=== PATIENT | female | born 1950 | race Caucasian/White ===

== ENCOUNTER → 2016-08-08 | Outpatient (CLI) | payer MEDICARE ==
--- NOTE | 2016-08-10 08:01 | MM ---
Reason for exam: screening (asymptomatic). Last mammogram was performed 1 year ago. History: Patient is postmenopausal. Family history of breast cancer in paternal grandmother and breast cancer in sister. Physical Findings: A clinical breast exam by your physician is recommended on an annual basis and results should be correlated with mammographic findings. MG 3D Screening Mammo W/Cad Bilateral CC and MLO view(s) were taken. Prior study comparison: August 02, 2015, bilateral MG screening mammo w CAD. July 28, 2013, bilateral digital screening mammo w/CAD. There are scattered fibroglandular densities. No significant changes when compared with prior studies. ASSESSMENT: Negative, BI-RAD 1 RECOMMENDATION: Routine screening mammogram of both breasts in 1 year.
== END ==
LOC: RADMAMWWP 14:03
PROVIDERS: ATTEND Family Medicine
DX: Z12.31 Encounter for screening mammogram for malignant neoplasm of breast (principal)
CPT/HCPCS: 77063; G0202

== ENCOUNTER → 2018-01-17 | Outpatient (CLI) | payer MEDICARE ==
--- NOTE | 2018-01-21 07:22 | MM ---
Reason for exam: screening (asymptomatic). Last mammogram was performed 1 year and 5 months ago. History: Patient is postmenopausal. Family history of breast cancer in paternal grandmother and breast cancer in sister. Physical Findings: A clinical breast exam by your physician is recommended on an annual basis and results should be correlated with mammographic findings. MG 3D Screening Mammo W/Cad Bilateral CC and MLO view(s) were taken. Prior study comparison: August 08, 2016, bilateral MG 3d screening mammo w/cad. August 02, 2015, bilateral MG screening mammo w CAD. The breast tissue is heterogeneously dense. This may lower the sensitivity of mammography. There is chronic nodularity in the right breast. No significant changes when compared with prior studies. ASSESSMENT: Benign, BI-RAD 2 RECOMMENDATION: Routine screening mammogram of both breasts in 1 year.
== END | disposition home or self-care (01) ==
LOC: RADMAMWWP 08:34
PROVIDERS: ATTEND Family Medicine
DX: Z12.31 Encounter for screening mammogram for malignant neoplasm of breast (principal); Z80.3 Family history of malignant neoplasm of breast
CPT/HCPCS: 77063; 77067

== ENCOUNTER 2019-06-08 01:43 | Emergency (ER) | payer MEDICARE ==
[2019-06-08 01:54] VITALS: RESP 18; TEMP 98.1
[2019-06-08 02:11] VITALS: PULSE 80
[2019-06-08] MEDS ORDERED: ALPRAZolam 0.5 MG TAB PO STA (02:12)
--- NOTE | 2019-06-08 02:26 | ED ---
Anxiety HPI - General Chief Complaint: Anxiety Stated Complaint: poss high BP Time Seen by Provider: 06/08/19 01:55 Source: patient, family Mode of arrival: ambulatory - History of Present Illness Initial Comments: Patient is 69-year-old female presenting to emergency Department with chief complaint of anxiety. Patient reports she was on antihypertensive medication initially however she has not taken if her last 3-4 months. Patient reports she recently went back to her primary care who gave her a refill for lisinopril. Patient reports she has been taking her medication consistently since . Patient reports today she obtain a blood pressure and was 180/80. Patient reports she built-up anxiety since and came to the ED for further evaluation. Patient reports a past 2 weeks she is having some tenderness under her left breast that is only exacerbated with palpation. Patient appears to exacerbated with left and right rotation. Patient reports she saw her primary care and discuss this issue with her which the primary care suggested that is muscular skeletal nature. Patient denies shortness of breath, chest pain, chest tightness, chest palpitations, headache, dizziness, nausea, vomiting, diaphoresis, abdominal pain or back pain - Related Data Home Medications: Previous Rx's Medication Instructions Recorded Cephalexin [Keflex] 500 mg PO Q6HR 7 Days #28 cap 06/08/19 Allergies/Adverse Reactions: Allergies Allergy/AdvReac Type Severity Reaction Status Date / Time No Known Allergies Allergy Verified 06/08/19 01:54 Review of Systems ROS Statement: Those systems with pertinent positive or pertinent negative responses have been documented in the HPI. ROS Other: All systems not noted in ROS Statement are negative. Past Medical History Past Medical History: Hypertension History of Any Multi-Drug Resistant Organisms: None Reported Past Surgical History: No Surgical Hx Reported Past Psychological History: No Psychological Hx Reported Smoking Status: Never smoker Past Alcohol Use History: None Reported Past Drug Use History: None Reported General Exam Limitations: no limitations General appearance: alert, in no apparent distress, obese Head exam: Present: atraumatic, normocephalic, normal inspection Eye exam: Present: normal appearance, PERRL, EOMI Pupils: Present: normal accommodation ENT exam: Present: normal exam, mucous membranes moist Neck exam: Present: normal inspection, full ROM Respiratory exam: Present: normal lung sounds bilaterally, chest wall tenderness (Mild tenderness under left breast with palpation. No erythema or swelling at the region tenderness) Cardiovascular Exam: Present: regular rate, normal rhythm, normal heart sounds Extremities exam: Present: normal inspection, full ROM Back exam: Present: normal inspection, full ROM Neurological exam: Present: alert, oriented X3 Psychiatric exam: Present: normal affect, normal mood Skin exam: Present: warm, dry, intact, normal color Course Vital Signs 06/08/19 06/08/19 06/08/19 01:48 02:08 02:23 Temperature 98.1 F Pulse Rate 76 Pulse Rate [ 80 Electrotype Finisher ] Respiratory 18 Rate Blood Pressure 240/112 187/79 O2 Sat by Pulse 97 Oximetry 06/08/19 03:24 Temperature Pulse Rate Pulse Rate [ Electrotype Finisher ] Respiratory Rate Blood Pressure 162/82 O2 Sat by Pulse Oximetry Medical Decision Making - Medical Decision Making Patient is a 69-year-old female presenting to emergency Department with a chief complaint of anxiety. Physical examination is only remarkable for tenderness under her left breast, with no swelling or erythema. At triage, patient had blood pressure of 240/120. Patient was brought to the room and given 0.5 mg of Xanax. Reevaluation patient has a much improved blood pressure. CBC CMP are unremarkable. Patient has mild decrease in GFR. Initial troponins are negative. X-rays negative. EKG showing normal sinus rhythm with left axis deviation and inverted T waves in lead 3. Urine is showing no protein but does show signs of a UTI. Patient will be treated with Keflex. Patient has no complaints at this time. Patient is having asymptomatic hypertension. Patient advised to continue taking her lisinopril. Patient advised to follow with the fine craft artist. I suspect the tenderness in her left breast to be musculoskeletal in nature as the pain seems to be exacerbated with left and right rotation. Strict return parameters were thoroughly discussed the patient was understanding and agreeable. Case discussed physician. - Lab Data Result diagrams: 06/08/19 02:38 06/08/19 02:38 Lab Results 06/08/19 06/08/19 06/08/19 Range/Units 02:38 02:38 02:38 WBC 6.2 (3.8-10.6) k/uL RBC 4.82 (3.80-5.40) m/uL Hgb 14.8 (11.4-16.0) gm/dL Hct 43.3 (34.0-46.0) % MCV 89.9 (80.0-100.0) fL MCH 30.7 (25.0-35.0) pg MCHC 34.1 (31.0-37.0) g/dL RDW 12.8 (11.5-15.5) % Plt Count 214 (150-450) k/uL Neutrophils % 62 % Lymphocytes % 27 % Monocytes % 6 % Eosinophils % 2 % Basophils % 1 % Neutrophils # 3.8 (1.3-7.7) k/uL Lymphocytes # 1.7 (1.0-4.8) k/uL Monocytes # 0.4 (0-1.0) k/uL Eosinophils # 0.1 (0-0.7) k/uL Basophils # 0.1 (0-0.2) k/uL Sodium 139 (137-145) mmol/L Potassium 3.7 (3.5-5.1) mmol/L Chloride 105 (98-107) mmol/L Carbon Dioxide 24 (22-30) mmol/L Anion Gap 10 mmol/L BUN 15 (7-17) mg/dL Creatinine 0.77 (0.52-1.04) mg/dL Est GFR (CKD-EPI)AfAm 90 (>60 ml/min/1.73 sqM) Est GFR (CKD-EPI)NonAf 78 (>60 ml/min/1.73 sqM) Glucose 139 H (74-99) mg/dL Calcium 9.3 (8.4-10.2) mg/dL Total Bilirubin 0.5 (0.2-1.3) mg/dL AST 22 (14-36) U/L ALT 22 (9-52) U/L Alkaline Phosphatase 122 (38-126) U/L Troponin I <0.012 (0.000-0.034) ng/mL Total Protein 7.6 (6.3-8.2) g/dL Albumin 4.5 (3.5-5.0) g/dL Urine Color Urine Appearance (Clear) Urine pH (5.0-8.0) Ur Specific [place] (1.001-1.035) Urine Protein (Negative) Urine Glucose (UA) (Negative) Urine Ketones (Negative) Urine Blood (Negative) Urine Nitrite (Negative) Urine Bilirubin (Negative) Urine Urobilinogen (<2.0) mg/dL Ur Leukocyte Esterase (Negative) Urine RBC (0-5) /hpf Urine WBC (0-5) /hpf Ur Squamous Epith Cells (0-4) /hpf Urine Bacteria (None) /hpf Hyaline Casts (0-2) /lpf Urine Mucus (None) /hpf 06/08/19 Range/Units 03:56 WBC (3.8-10.6) k/uL RBC (3.80-5.40) m/uL Hgb (11.4-16.0) gm/dL Hct (34.0-46.0) % MCV (80.0-100.0) fL MCH (25.0-35.0) pg MCHC (31.0-37.0) g/dL RDW (11.5-15.5) % Plt Count (150-450) k/uL Neutrophils % % Lymphocytes % % Monocytes % % Eosinophils % % Basophils % % Neutrophils # (1.3-7.7) k/uL Lymphocytes # (1.0-4.8) k/uL Monocytes # (0-1.0) k/uL Eosinophils # (0-0.7) k/uL Basophils # (0-0.2) k/uL Sodium (137-145) mmol/L Potassium (3.5-5.1) mmol/L Chloride (98-107) mmol/L Carbon Dioxide (22-30) mmol/L Anion Gap mmol/L BUN (7-17) mg/dL Creatinine (0.52-1.04) mg/dL Est GFR (CKD-EPI)AfAm (>60 ml/min/1.73 sqM) Est GFR (CKD-EPI)NonAf (>60 ml/min/1.73 sqM) Glucose (74-99) mg/dL Calcium (8.4-10.2) mg/dL Total Bilirubin (0.2-1.3) mg/dL AST (14-36) U/L ALT (9-52) U/L Alkaline Phosphatase (38-126) U/L Troponin I (0.000-0.034) ng/mL Total Protein (6.3-8.2) g/dL Albumin (3.5-5.0) g/dL Urine Color Light Yellow Urine Appearance Cloudy H (Clear) Urine pH 5.5 (5.0-8.0) Ur Specific [place] 1.008 (1.001-1.035) Urine Protein Negative (Negative) Urine Glucose (UA) Negative (Negative) Urine Ketones Negative (Negative) Urine Blood Negative (Negative) Urine Nitrite Negative (Negative) Urine Bilirubin Negative (Negative) Urine Urobilinogen <2.0 (<2.0) mg/dL Ur Leukocyte Esterase Large H (Negative) Urine RBC 20 H (0-5) /hpf Urine WBC 22 H (0-5) /hpf Ur Squamous Epith Cells 5 H (0-4) /hpf Urine Bacteria Rare H (None) /hpf Hyaline Casts 7 H (0-2) /lpf Urine Mucus Occasional H (None) /hpf - EKG Data EKG Comments: Normal sinus rhythm, inverted T waves in lead 3, left axis deviation Ventricular rate 65, CA interval 160, QRS duration 90, QT/QTc 422/438 Disposition Clinical Impression: Hypertensive urgency, Anxiety Disposition: HOME SELF-CARE Condition: Stable Instructions (If sedation given, give patient instructions): Generalized Anxiety Disorder (ED) Prescriptions: Cephalexin [Keflex] 500 mg PO Q6HR 7 Days #28 cap Is patient prescribed a controlled substance at d/c from ED?: No Referrals: Eula Cox MD [Primary Care Provider] - 1-2 days Justina Klein MD [STAFF PHYSICIAN] - 1-2 days Time of Disposition: 04:12
--- NOTE | 2019-06-08 02:34 | XR ---
EXAMINATION TYPE: XR chest 2V DATE OF EXAM: 06/08/2019 COMPARISON: NONE HISTORY: Chest pain TECHNIQUE: Frontal and lateral views of the chest are obtained. FINDINGS: Heart and mediastinum are normal. Lungs are clear. Diaphragm is normal. Bony thorax appear s normal. IMPRESSION: Normal chest
[2019-06-08 02:58] LABS: Basophils # (A) 0.1 k/uL (0-0.2); Basophils % (A) 1 %; Eosinophils # (A) 0.1 k/uL (0-0.7); Eosinophils % (A) 2 %; HCT 43.3 % (34.0-46.0); HGB 14.8 gm/dL (11.4-16.0); Lymphocytes # (A) 1.7 k/uL (1.0-4.8); Lymphocytes % (A) 27 %; MCH 30.7 pg (25.0-35.0); MCHC 34.1 g/dL (31.0-37.0); MCV 89.9 fL (80.0-100.0); Mean Platelet Volume 6.1; Monocytes # (A) 0.4 k/uL (0-1.0); Monocytes % (A) 6 %; Neutrophils # (A) 3.8 k/uL (1.3-7.7); Neutrophils % (A) 62 %; Platelet Count 214 k/uL (150-450); RBC 4.82 m/uL (3.80-5.40); RDW 12.8 % (11.5-15.5); WBC 6.2 k/uL (3.8-10.6)
[2019-06-08 03:01] LABS: Albumin 4.5 g/dL (3.5-5.0); Calcium 9.3 mg/dL (8.4-10.2); Potassium 3.7 mmol/L (3.5-5.1); Total Bilirubin 0.5 mg/dL (0.2-1.3); Total Protein 7.6 g/dL (6.3-8.2)
[2019-06-08 04:24] LABS: Appearance,Urine Cloudy (Clear); Bacteria,Urine Rare /hpf; Bilirubin,Urine Negative (Negative); Blood,Urine Negative (Negative); Color,Urine Light Yellow; Glucose,Urine (UA) Negative (Negative); Hyaline Casts,Urine 7 /lpf (0-2); Ketones,Urine Negative (Negative); Leukocyte Esterase,Urine Large (Negative); Mucus,Urine Occasional /hpf; Nitrite,Urine Negative (Negative); PH, Urine 5.5 (5.0-8.0); Protein,Urine Negative (Negative); RBC,Urine 20 /hpf (0-5); Specific Gravity,Urine 1.008 (1.001-1.035); Squamous Epithelial Cell,Urine 5 /hpf (0-4); Urobilinogen,Urine <2.0 mg/dL (<2.0); WBC,Urine 22 /hpf (0-5)
[2019-06-08] MEDS ORDERED: CEPHALEXIN 500MG STARTER PACK 4 CAP BTL PO STA (04:24)
[2019-06-08 04:39] VITALS: BP 146/66
== END 2019-06-08 04:53 | disposition home or self-care (01) ==
LOC: EC 01:43
DX: F41.9 Anxiety disorder, unspecified (principal); I16.0 Hypertensive urgency; R94.31 Abnormal electrocardiogram [ECG] [EKG]; I10 Essential (primary) hypertension; Z79.899 Other long term (current) drug therapy
CPT/HCPCS: 36415; 71046; 80053; 81001; 84484; 85025; 93005; 99284

== ENCOUNTER → 2019-07-27 | Outpatient (CLI) | payer MEDICARE ==
--- NOTE | 2019-07-30 10:56 | MM ---
Reason for exam: screening (asymptomatic). Last mammogram was performed 1 year and 6 months ago. History: Patient is postmenopausal. Family history of breast cancer in paternal grandmother and breast cancer in sister. Physical Findings: A clinical breast exam by your physician is recommended on an annual basis and results should be correlated with mammographic findings. MG 3D Screening Mammo W/Cad Bilateral CC and MLO view(s) were taken. Prior study comparison: January 17, 2018, bilateral MG 3d screening mammo w/cad. August 08, 2016, bilateral MG 3d screening mammo w/cad. The breast tissue is heterogeneously dense. This may lower the sensitivity of mammography. There is chronic nodularity in the right breast. There is no discrete abnormality. ASSESSMENT: Benign, BI-RAD 2 RECOMMENDATION: Routine screening mammogram of both breasts in 1 year.
== END | disposition home or self-care (01) ==
LOC: RADMAMWWP 16:34
PROVIDERS: ATTEND Family Medicine
DX: Z12.31 Encounter for screening mammogram for malignant neoplasm of breast (principal); Z80.3 Family history of malignant neoplasm of breast
CPT/HCPCS: 77063; 77067

== ENCOUNTER 2023-11-20 23:00 | Emergency (ER) | payer MEDICARE ==
[2023-11-20 23:34] LABS: Glucose,Whole Blood 118 mg/dL (70-110)
--- NOTE | 2023-11-21 00:10 | XR ---
EXAMINATION TYPE: XR chest 2V DATE OF EXAM: 11/21/2023 COMPARISON: Chest x-ray June 08, 2019 HISTORY: Altered mental status and hypertension. TECHNIQUE: Frontal and lateral views of the chest are obtained. FINDINGS: There is no focal air space opacity, pleural effusion, or pneumothorax seen. The cardiac silhouette size is stable and within normal limits. The osseous structures are intact. Cholecystect [place] clips are redemonstrated. IMPRESSION: No acute cardiopulmonary process. No significant change from prior.
[2023-11-21 00:33] LABS: Basophils # (A) 0.1 k/uL (0-0.2); Basophils % (A) 1 %; Eosinophils # (A) 0.1 k/uL (0-0.7); Eosinophils % (A) 1 %; HCT 45.5 % (34.0-46.0); HGB 15.3 gm/dL (11.4-16.0); Lymphocytes # (A) 2.3 k/uL (1.0-4.8); Lymphocytes % (A) 25 %; MCH 31.6 pg (25.0-35.0); MCHC 33.7 g/dL (31.0-37.0); Mean Platelet Volume 7.4; Monocytes # (A) 0.5 k/uL (0-1.0); Monocytes % (A) 6 %; Neutrophils % (A) 66 %; Platelet Count 258 k/uL (150-450); RBC 4.84 m/uL (3.80-5.40); RDW 13.7 % (11.5-15.5); WBC 9.2 k/uL (3.8-10.6)
--- NOTE | 2023-11-21 00:35 | CT ---
EXAMINATION TYPE: CT brain wo con DATE OF EXAM: 11/21/2023 HISTORY: double vision/hypertension CT DLP: 1125.1 mGycm. Automated Exposure Control for Dose Reduction was Utilized. TECHNIQUE: CT scan of the head is performed without contrast. COMPARISON: None. FINDINGS: There is no acute intracranial hemorrhage or midline shift identified. Ventricles and sul ci within normal limits in size for patient's age. Lazcano-white matter differentiation is maintained. B ilateral aphakia is present. The paranasal sinuses are grossly clear. There is sellar mass extendin g into the suprasellar space and having left sided expansion axial image 19. This measures 1.3 cm scratch polisher niocaudal dimension sagittal measures 29 IMPRESSION: No acute intracranial hemorrhage or midline shift. 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 Neoplasm such as pituitary macroadenoma needs to be considered. Follow-up MRI without and with contrast advised to better evaluate and characteriz e.
[2023-11-21 01:24] LABS: Prothrombin Time 10.8 sec (10.0-12.5)
[2023-11-21 01:25] LABS: ALT 20 U/L (4-34); AST 28 U/L (14-36); African American GFR (CKD) >90 (>60 ml/min/1.73 sqM); Albumin 4.2 g/dL (3.5-5.0); Alkaline Phosphatase 117 U/L (38-126); Anion Gap 11 mmol/L; Blood Urea Nitrogen 20 mg/dL (7-17); Calcium 9.1 mg/dL (8.4-10.2); Carbon Dioxide 21 mmol/L (22-30); Chloride 107 mmol/L (98-107); Creatine Kinase 53 U/L (30-135); Glucose 127 mg/dL (74-99); Non-African American GFR(CKD) 83 (>60 ml/min/1.73 sqM); Potassium 4.6 mmol/L (3.5-5.1); Sodium 139 mmol/L (137-145); Total Bilirubin 0.6 mg/dL (0.2-1.3); Total Protein 7.3 g/dL (6.3-8.2)
[2023-11-21 01:33] LABS: Partial Thromboplastin Time 21.8 sec (22.0-30.0)
--- NOTE | 2023-11-21 01:57 | ED ---
General Adult HPI - General Chief complaint: Neuro Symptoms/Deficit Stated complaint: Blurred vision Time Seen by Provider: 11/21/23 01:31 Source: patient Mode of arrival: ambulatory Limitations: no limitations - History of Present Illness Initial comments: This patient is a 73-year-old woman who states that this evening while at work she noticed that she seemed to be having some double vision. The patient states that she rested and the double vision persisted. She took her blood pressure and it was elevated and then felt that she should be evaluated here. Patient was working when this occurred. There was no trauma. She did not have any eye injury. The patient denies headache. Onset/Timin -: hour(s) Severity scale (1-10): 0 Consistency: constant Improves with: none Worsens with: none Associated Symptoms: denies other symptoms Treatments Prior to Arrival: none - Related Data Previous Rx's Medication Instructions Recorded Cephalexin [Keflex] 500 mg PO Q6HR 7 Days #28 cap 06/08/19 Allergies Allergy/AdvReac Type Severity Reaction Status Date / Time No Known Allergies Allergy Verified 11/20/23 23:29 Review of Systems ROS Statement: Those systems with pertinent positive or pertinent negative responses have been documented in the HPI. ROS Other: All systems not noted in ROS Statement are negative. Constitutional: Denies: fever, chills, weakness Eyes: Reports: vision change. Denies: eye pain, eye discharge ENT: Denies: ear pain Respiratory: Denies: cough, dyspnea Cardiovascular: Denies: chest pain, palpitations, syncope Gastrointestinal: Denies: abdominal pain, nausea, vomiting Genitourinary: Denies: dysuria, hematuria Musculoskeletal: Denies: back pain Skin: Denies: rash Neurological: Reports: other. Denies: headache, weakness, numbness Past Medical History Past Medical History: Hyperlipidemia, Hypertension, Osteoarthritis (OA) History of Any Multi-Drug Resistant Organisms: None Reported Past Surgical History: Appendectomy Past Psychological History: No Psychological Hx Reported Smoking Status: Never smoker Past Alcohol Use History: None Reported Past Drug Use History: None Reported General Exam Limitations: no limitations General appearance: alert, in no apparent distress Head exam: Present: atraumatic, normocephalic Eye exam: Present: normal appearance, PERRL, EOMI. Absent: scleral icterus, conjunctival injection, nystagmus, periorbital swelling, periorbital tenderness ENT exam: Present: normal oropharynx, TM's normal bilaterally Neck exam: Present: normal inspection, full ROM Respiratory exam: Present: normal lung sounds bilaterally. Absent: respiratory distress, wheezes, rales, rhonchi, stridor Cardiovascular Exam: Present: regular rate, normal rhythm, normal heart sounds. Absent: systolic murmur, diastolic murmur, rubs, gallop GI/Abdominal exam: Present: soft. Absent: distended, tenderness, guarding Extremities exam: Present: normal inspection, normal capillary refill. Absent: pedal edema, calf tenderness Back exam: Present: normal inspection Neurological exam: Present: alert, oriented X3 Skin exam: Present: warm, dry, intact, normal color. Absent: rash Course Vital Signs 11/20/23 11/21/23 11/21/23 23:30 01:30 03:19 Temperature 97.7 F 98.0 F Pulse Rate 82 61 77 Respiratory 16 16 18 Rate Blood Pressure 180/108 198/96 165/94 O2 Sat by Pulse 95 97 96 Oximetry EKG Findings - EKG Results: EKG: interpreted by FERN, sinus rhythm (Rate 66 bpm), normal axis, normal ST/T - Blocks, [place], Hypertrophy, ST Abn: Chamber hypertrophy or enlargement: only voltage criteria for left ventricular hypertrophy Medical Decision Making - Medical Decision Making The patient had CT of the brain that does reveal suprasellar mass as per my interpretation This patient is a 73-year-old woman here to have evaluation for diplopia. The patient's CT does reveal suprasellar mass. Given this we will have the patient follow to have further evaluation and treatment. Discussed the appropriate further care as well as return parameters. Was pt. sent in by a medical professional or institution (, PA, DENTAL OFFICE MANAGER, urgent care, hospital, or snf...) When possible be specific @ -[No] Did you speak to anyone other than the patient for history (EMS, parent, family, police, friend...)? What history was obtained from this source @ -[No] Did you review nursing and triage notes (agree or disagree)? Why? @ -[I reviewed and agree with nursing and triage notes] Were old charts reviewed (outside hosp., previous admission, EMS record, old EKG, old radiological studies, urgent care reports/EKG's, snf records)? Report findings @ -[No old charts were reviewed] Differential Diagnosis (chest pain, altered mental status, abdominal pain women, abdominal pain men, vaginal bleeding, weakness, fever, dyspnea, syncope, headache, dizziness, GI bleed, back pain, seizure, CVA, palpatations, mental health, musculoskeletal)? @ -Differential Ischemic stroke, hemorrhagic stroke, brain tumor, atypical migraine, Wernicke's encephalopathy, seizure, multiple sclerosis, meningitis, encephalitis, hypoglycemia, Guillain-Barry, electrolytes disturbance, myasthenia gravis.... This is not meant to be an all-inclusive list EKG interpreted by me (3pts min.). @ -[As above] X-rays interpreted by me (1pt min.). @ -[None done] CT interpreted by me (1pt min.). @ -[I interpreted as above U/S interpreted by me (1pt. min.). @ -[None done] What testing was considered but not performed or refused? (CT, X-rays, U/S, labs)? Why? @ -[None] What meds were considered but not given or refused? Why? @ -[None] Did you discuss the management of the patient with other professionals (professionals i.e. , PA, DENTAL OFFICE MANAGER, lab, RT, psych nurse, web content & social media manager, media services director, teacher, home school liaison officer, case finisher)? Give summary @ -[No] Was smoking cessation discussed for >3mins.? @ -[No] Was critical care preformed (if so, how long)? @ -[No] Were there social determinants of health that impacted care today? How? (Homelessness, low income, unemployed, alcoholism, drug addiction, transportation, low edu. Level, literacy, decrease access to med. care, longterm, rehab)? @ -[No] Was there de-escalation of care discussed even if they declined (Discuss DNR or withdrawal of care, Hospice)? DNR status @ -[No] What co-morbidities impacted this encounter? (DM, HTN, Smoking, COPD, CAD, Cancer, CVA, ARF, Chemo, Hep., AIDS, mental health diagnosis, sleep apnea, morbid obesity)? @ -[None] Was patient admitted / discharged? Hospital course, mention meds given and route, prescriptions, significant lab abnormalities, going to OR and other pertinent info. @ -[See above Undiagnosed new problem with uncertain prognosis? @ -[No] Drug Therapy requiring intensive monitoring for toxicity (Heparin, Nitro, Insulin, Cardizem)? @ -[No] Were any procedures done? @ -[No] Diagnosis/symptom? @ -[ Acute diplopia Suprasellar mass Hypertension Acute, or Chronic, or Acute on Chronic? @ -[Acute Uncomplicated (without systemic symptoms) or Complicated (systemic symptoms)? @ -Complicated by diplopia Side effects of treatment? @ -[No] Exacerbation, Progression, or Severe Exacerbation? @ -[No] Poses a threat to life or bodily function? How? (Chest pain, USA, AR, pneumonia, PE, COPD, DKA, ARF, appy, cholecystitis, CVA, Diverticulitis, Homicidal, Suicidal, threat to staff... and all critical care pts) @ -[Yes, requires further evaluation and treatment - Lab Data Result diagrams: 11/20/23 23:55 11/20/23 23:55 Lab Results 11/20/23 11/20/23 11/20/23 Range/Units 23:32 23:55 23:55 WBC 9.2 (3.8-10.6) k/uL RBC 4.84 (3.80-5.40) m/uL Hgb 15.3 (11.4-16.0) gm/dL Hct 45.5 (34.0-46.0) % MCV 94.0 (80.0-100.0) fL MCH 31.6 (25.0-35.0) pg MCHC 33.7 (31.0-37.0) g/dL RDW 13.7 (11.5-15.5) % Plt Count 258 (150-450) k/uL MPV 7.4 Neutrophils % 66 % Lymphocytes % 25 % Monocytes % 6 % Eosinophils % 1 % Basophils % 1 % Neutrophils # 6.0 (1.3-7.7) k/uL Lymphocytes # 2.3 (1.0-4.8) k/uL Monocytes # 0.5 (0-1.0) k/uL Eosinophils # 0.1 (0-0.7) k/uL Basophils # 0.1 (0-0.2) k/uL PT 10.8 (10.0-12.5) sec INR 1.0 (<1.2) APTT 21.8 L (22.0-30.0) sec Sodium (137-145) mmol/L Potassium (3.5-5.1) mmol/L Chloride (98-107) mmol/L Carbon Dioxide (22-30) mmol/L Anion Gap mmol/L BUN (7-17) mg/dL Creatinine (0.52-1.04) mg/dL Est GFR (CKD-EPI)AfAm (>60 ml/min/1.73 sqM) Est GFR (CKD-EPI)NonAf (>60 ml/min/1.73 sqM) Glucose (74-99) mg/dL POC Glucose (mg/dL) 118 H (70-110) mg/dL POC Glu Cnc Mill Programmer PEARL Florencia Tr Calcium (8.4-10.2) mg/dL Total Bilirubin (0.2-1.3) mg/dL AST (14-36) U/L ALT (4-34) U/L Alkaline Phosphatase (38-126) U/L Creatine Kinase (30-135) U/L Troponin I (0.000-0.034) ng/mL Total Protein (6.3-8.2) g/dL Albumin (3.5-5.0) g/dL 11/20/23 11/20/23 Range/Units 23:55 23:55 WBC (3.8-10.6) k/uL RBC (3.80-5.40) m/uL Hgb (11.4-16.0) gm/dL Hct (34.0-46.0) % MCV (80.0-100.0) fL MCH (25.0-35.0) pg MCHC (31.0-37.0) g/dL RDW (11.5-15.5) % Plt Count (150-450) k/uL MPV Neutrophils % % Lymphocytes % % Monocytes % % Eosinophils % % Basophils % % Neutrophils # (1.3-7.7) k/uL Lymphocytes # (1.0-4.8) k/uL Monocytes # (0-1.0) k/uL Eosinophils # (0-0.7) k/uL Basophils # (0-0.2) k/uL PT (10.0-12.5) sec INR (<1.2) APTT (22.0-30.0) sec Sodium 139 (137-145) mmol/L Potassium 4.6 (3.5-5.1) mmol/L Chloride 107 (98-107) mmol/L Carbon Dioxide 21 L (22-30) mmol/L Anion Gap 11 mmol/L BUN 20 H (7-17) mg/dL Creatinine 0.72 (0.52-1.04) mg/dL Est GFR (CKD-EPI)AfAm >90 (>60 ml/min/1.73 sqM) Est GFR (CKD-EPI)NonAf 83 (>60 ml/min/1.73 sqM) Glucose 127 H (74-99) mg/dL POC Glucose (mg/dL) (70-110) mg/dL POC Glu Cnc Mill Programmer ID Calcium 9.1 (8.4-10.2) mg/dL Total Bilirubin 0.6 (0.2-1.3) mg/dL AST 28 (14-36) U/L ALT 20 (4-34) U/L Alkaline Phosphatase 117 (38-126) U/L Creatine Kinase 53 (30-135) U/L Troponin I <0.012 (0.000-0.034) ng/mL Total Protein 7.3 (6.3-8.2) g/dL Albumin 4.2 (3.5-5.0) g/dL Disposition Clinical Impression: Suprasellar mass, Hypertension Disposition: HOME SELF-CARE Condition: Good Instructions (If sedation given, give patient instructions): Pituitary Adenoma (ED), Hypertension (ED) Additional Instructions: As we discussed, you must follow-up to have the MRI of the suprasellar mass. The most likely thing is pituitary adenoma but cancer must be ruled out. If there is any difficulty with the follow-up plan return here. If her symptoms return or new symptoms develop return to emergency department Is patient prescribed a controlled substance at d/c from ED?: No Referrals: Nati Coello NPC [Primary Care Provider] - 1-[address] MD [REFERRING] - 1-2 days
[2023-11-21 03:47] VITALS: BP 165/94; PULSE 77; RESP 18; TEMP 98
== END 2023-11-21 03:21 | disposition home or self-care (01) ==
LOC: EC 23:00
DX: I10 Essential (primary) hypertension (principal); H53.2 Diplopia; E23.6 Other disorders of pituitary gland
CPT/HCPCS: 36415; 70450; 71046; 80053; 82550; 84484; 85025; 85610; 85730; 93005; 99284

== ENCOUNTER → 2023-11-22 | Outpatient (CLI) | payer MEDICARE ==
[2023-11-22 19:22] LABS: Luteinizing Hormone 9.8 mIU/mL; Prolactin 27.8 ng/mL (2.800-29.200)
== END | disposition home or self-care (01) ==
LOC: LABWHC1 13:56
PROVIDERS: ATTEND Family Medicine
DX: D35.2 Benign neoplasm of pituitary gland (principal)
CPT/HCPCS: 36415; 82024; 83001; 83002; 84146; 84443

== ENCOUNTER → 2023-11-29 | Outpatient (CLI) | payer MEDICARE ==
--- NOTE | 2023-11-30 06:41 | MR ---
EXAMINATION TYPE: MR brain wo/w con DATE OF EXAM: 11/29/2023 COMPARISON: CT brain November 20, 2023 HISTORY: Benign neoplasm of pituitary, visual disturbance, abnormal CT TECHNIQUE: Multiplanar, multisequence images of the brain and brainstem is performed without and with IV contras t, utilizing 8 mL intravenous Gadavist . FINDINGS: Diffusion weighted images demonstrate no evidence of a recent infarct or other diffusion ab normality. Mild ventricular and sulcal prominence. Scattered and confluent areas of T2 hyperintensity throughout the white matter bilaterally greatest at the periventricular levels. Lesions are nonspeci fic in appearance and distribution. Midline structures demonstrate prominent pituitary gland with superior concave margin bulging into th e suprasellar space. The craniocervical junction appears within normal limits. Heterogeneous enhance ment of the pituitary gland is identified. Pituitary stalk is deviated to right of midline. Post cont rast images demonstrate no additional areas of abnormal enhancement. The dural venous sinuses appear patent. The visualized sinuses are clear. Bilateral aphakia is present. IMPRESSION: 1. Prominent slightly enlarged pituitary gland having suprasellar extension and heterogeneous postcon trast enhancement worrisome for macroadenoma. Finding could be better evaluated and characterized wit h dedicated pituitary gland protocol MRI if desired. 2. Background mild diffuse cerebral atrophy and mild to moderate chronic small vessel ischemic change is noted.
== END | disposition home or self-care (01) ==
LOC: RADMRIMAIN 21:15
PROVIDERS: ATTEND Family Medicine
DX: G31.9 Degenerative disease of nervous system, unspecified (principal); I67.82 Cerebral ischemia; D35.2 Benign neoplasm of pituitary gland; E23.6 Other disorders of pituitary gland; H53.8 Other visual disturbances
CPT/HCPCS: 70553; A9585

== ENCOUNTER 2024-02-17 09:30 | Emergency (ER) | payer MEDICARE ==
--- NOTE | 2024-02-17 09:49 | ED ---
General Adult HPI - General Chief complaint: Headache Stated complaint: headache Time Seen by Provider: 02/17/24 09:31 Source: patient Mode of arrival: wheelchair Limitations: no limitations - History of Present Illness Initial comments: Dictation was produced using [employer] dictation software. please excuse any grammatical, word or spelling errors. Chief Complaint: 73-year-old female presents emergency department for headache History of Present Illness: Patient 73-year-old female presents emergency department with headache. Patient is postop day 7 for transsphenoidal approach for pituitary tumor excision. Family at the bedside states that patient had only part of the tumor removed due to complication. Patient states that for the last 2 to 3 days she has been having headache. States that the headache is seemingly towards her left head. States that she has been having headaches since diagnosed with pituitary tumor several weeks ago. Patient had this procedure performed at [facility] by neurosurgeon Dr. Landeros. Patient states that her vision seems a little blurry. Denies any extremity issues. The ROS documented in this emergency department record has been reviewed and confirmed by me. Those systems with pertinent positive or negative responses have been documented in the HPI. All other systems are other negative and/or noncontributory. - Related Data Previous Rx's Medication Instructions Recorded Cephalexin [Keflex] 500 mg PO Q6HR 7 Days #28 cap 06/08/19 Allergies Allergy/AdvReac Type Severity Reaction Status Date / Time No Known Allergies Allergy Verified 02/17/24 09:34 Review of Systems ROS Statement: Those systems with pertinent positive or pertinent negative responses have been documented in the HPI. ROS Other: All systems not noted in ROS Statement are negative. Past Medical History Past Medical History: Hyperlipidemia, Hypertension, Osteoarthritis (OA) History of Any Multi-Drug Resistant Organisms: None Reported Past Surgical History: Appendectomy Additional Past Surgical History / Comment(s): Pituitary tumor removed 02/10/24 Past Psychological History: Anxiety Smoking Status: Never smoker Past Alcohol Use History: None Reported Past Drug Use History: None Reported General Exam - General Exam Comments Initial Comments: PHYSICAL EXAM: General Impression: Alert and oriented x3, not in acute distress HEENT: Normocephalic atraumatic, extra-ocular movements intact, pupils equal and reactive to light bilaterally, mucous membranes moist. Cardiovascular: Heart regular rate and rhythm Chest: Able to complete full sentences, no retractions, no tachypnea Abdomen: abdomen soft, non-tender, non-distended, no organomegaly Musculoskeletal: Pulses present and equal in all extremities, no peripheral edema Motor: no focal deficits noted Neurological: CN II-XII grossly intact, no focal motor or sensory deficits noted Skin: Intact with no visualized rashes Psych: Normal affect and mood Limitations: no limitations Course Vital Signs 02/17/24 09:30 Temperature 98.0 F Pulse Rate 77 Respiratory 18 Rate Blood Pressure 147/87 O2 Sat by Pulse 97 Oximetry - Reevaluation(s) Reevaluation #1: 02/17/24 10:57 Long discussion was held with patient and family member at the bedside. I did speak with Dr. Arellano office staff. I did speak with Dr. Landeros and recommended that patient be discharged to follow-up in the office tomorrow. I did speak with Dr. Arellano office nurse and explained imaging studies along with labs and clinical presentation. She did contact Dr. Landeros who was unable to communicate over the phone. She did state that these findings are common and that patient can be discharged. They did call in some steroids for the patient. Discussed with family them initial plan was to transfer patient to [facility] for further care and monitoring especially that she is postop day 7 for brain surgery.. They were given that option however declined and preferred to follow the instruction of her neurosurgeon which I believe is a reasonable disposition. They are given strict return precautions. Patient has pain medications that were called in by surgeon Medical Decision Making - Medical Decision Making Was pt. sent in by a medical professional or institution (, PA, FOOD SERVICE AGENT, urgent care, hospital, or residential...) When possible be specific @ -No Did you speak to anyone other than the patient for history (EMS, parent, family, police, friend...)? What history was obtained from this source @ -No Did you review nursing and triage notes (agree or disagree)? Why? @ -I reviewed and agree with nursing and triage notes Were old charts reviewed (outside hosp., previous admission, EMS record, old EKG, old radiological studies, urgent care reports/EKG's, residential records)? Report findings @ -No old charts were reviewed Differential Diagnosis (chest pain, altered mental status, abdominal pain women, abdominal pain men, vaginal bleeding, musculoskeletal, weakness, fever, dyspnea, syncope, headache, dizziness, GI bleed, back pain, seizure, CVA, palpatations, mental health)? @ -Differential Headache: Migraine, tension, cluster, carbon monoxide, central venous thrombosis, pension karma temporal arteritis, acute closure glaucoma, intercranial hemorrhage, mastoiditis, sinusitis, head injury, this is not meant to be an all-inclusive list. EKG interpreted by me (3pts min.). @ -None done X-rays interpreted by me (1pt min.). @ -None done CT interpreted by me (1pt min.). @ -CT brain shows postsurgical changes with heterogeneous fluid collection within the surgical bed U/S interpreted by me (1pt. min.). @ -None done What testing was considered but not performed or refused? (CT, X-rays, U/S, labs)? Why? @ -None What meds were considered but not given or refused? Why? @ -None Was smoking cessation discussed for >3mins.? @ -No Were there social determinants of health that impacted care today? How? (Homelessness, low income, unemployed, alcoholism, drug addiction, transportation, low edu. Level, literacy, decrease access to med. care, fpc, rehab)? @ -No Was there de-escalation of care discussed even if they declined (Discuss DNR or withdrawal of care, Hospice)? DNR status @ -No What co-morbidities impacted this encounter? (DM, HTN, Smoking, COPD, CAD, Cancer, CVA, ARF, Chemo, Hep., AIDS, mental health diagnosis, sleep apnea, morbid obesity)? @ -Recent transsphenoidal surgery Was patient admitted / discharged? Hospital course, mention meds given and route, prescriptions, significant lab abnormalities, going to OR and other pertinent info. @ -73-year-old female presents emergency department with headache. Patient had transsphenoidal pituitary surgery performed 7 days ago. Vital signs stable. Patient well-appearing she has no focal neurologic deficits. Patient had CT scan that showed fluid collection at the surgical bed. Long discussion was held with family along with Dr. Arellano office nurse. Shared decision was making family was agreeable for discharge. He has a close outpatient appointment tomorrow. See above for further detail Did you discuss the management of the patient with other professionals (professionals i.e. , PA, FOOD SERVICE AGENT, lab, RT, psych nurse, social work program coordinator, die presser, teacher, college service officer, renal case manager)? Give summary @ -See above Was critical care preformed (if so, how long)? @ -No Undiagnosed new problem with uncertain prognosis? @ -No Drug Therapy requiring intensive monitoring for toxicity (Heparin, Nitro, Insulin, Cardizem)? @ -No Were any procedures done? @ -No Diagnosis/symptom? Acute, or Chronic, or Acute on Chronic? Uncomplicated (without systemic symptoms) or Complicated (systemic symptoms)? @ -Headache, postop day 7 for transsphenoidal surgery Side effects of treatment? @ -No Exacerbation, Progression, or Severe Exacerbation? @ -No Poses a threat to life or bodily function? How? (Chest pain, [place], [place], pneumonia, PE, COPD, DKA, ARF, appy, cholecystitis, CVA, Diverticulitis, Homicidal, Suicidal, threat to staff... and all critical care pts) @ -yes - Lab Data Result diagrams: 02/17/24 09:53 02/17/24 09:53 Lab Results 02/17/24 02/17/24 Range/Units 09:53 09:53 WBC 6.7 (3.8-10.6) k/uL RBC 4.40 (3.80-5.40) m/uL Hgb 14.1 (11.4-16.0) gm/dL Hct 41.4 (34.0-46.0) % MCV 94.1 (80.0-100.0) fL MCH 32.1 (25.0-35.0) pg MCHC 34.1 (31.0-37.0) g/dL RDW 12.9 (11.5-15.5) % Plt Count 218 (150-450) k/uL MPV 7.1 Neutrophils % 50 % Lymphocytes % 38 % Monocytes % 7 % Eosinophils % 3 % Basophils % 1 % Neutrophils # 3.4 (1.3-7.7) k/uL Lymphocytes # 2.5 (1.0-4.8) k/uL Monocytes # 0.5 (0-1.0) k/uL Eosinophils # 0.2 (0-0.7) k/uL Basophils # 0.0 (0-0.2) k/uL Sodium 137 (137-145) mmol/L Potassium 3.6 (3.5-5.1) mmol/L Chloride 110 H (98-107) mmol/L Carbon Dioxide 20 L (22-30) mmol/L Anion Gap 7 mmol/L BUN 11 (7-17) mg/dL Creatinine 0.63 (0.52-1.04) mg/dL Est GFR (CKD-EPI)AfAm >90 (>60 ml/min/1.73 sqM) Est GFR (CKD-EPI)NonAf 88 (>60 ml/min/1.73 sqM) Glucose 111 H (74-99) mg/dL Calcium 8.2 L (8.4-10.2) mg/dL Disposition Clinical Impression: Headache Disposition: HOME SELF-CARE Condition: Fair Instructions (If sedation given, give patient instructions): Acute Headache (ED) Additional Instructions: follow up with Dr. Landeros Is patient prescribed a controlled substance at d/c from ED?: No Referrals: Justina Stevens DO [Primary Care Provider] - 1-2 days Time of Disposition: 11:00
[2024-02-17 09:59] LABS: Basophils % (A) 1 %; Eosinophils # (A) 0.2 k/uL (0-0.7); Eosinophils % (A) 3 %; HCT 41.4 % (34.0-46.0); HGB 14.1 gm/dL (11.4-16.0); Lymphocytes # (A) 2.5 k/uL (1.0-4.8); Lymphocytes % (A) 38 %; MCH 32.1 pg (25.0-35.0); MCHC 34.1 g/dL (31.0-37.0); MCV 94.1 fL (80.0-100.0); Mean Platelet Volume 7.1; Monocytes # (A) 0.5 k/uL (0-1.0); Monocytes % (A) 7 %; Neutrophils # (A) 3.4 k/uL (1.3-7.7); Neutrophils % (A) 50 %; Platelet Count 218 k/uL (150-450); RDW 12.9 % (11.5-15.5); WBC 6.7 k/uL (3.8-10.6)
[2024-02-17 10:12] LABS: African American GFR (CKD) >90 (>60 ml/min/1.73 sqM); Anion Gap 7 mmol/L; Blood Urea Nitrogen 11 mg/dL (7-17); Calcium 8.2 mg/dL (8.4-10.2); Carbon Dioxide 20 mmol/L (22-30); Chloride 110 mmol/L (98-107); Glucose 111 mg/dL (74-99); Non-African American GFR(CKD) 88 (>60 ml/min/1.73 sqM); Sodium 137 mmol/L (137-145)
[2024-02-17 10:13] LABS: Potassium 3.6 mmol/L (3.5-5.1)
--- NOTE | 2024-02-17 10:37 | CT ---
EXAMINATION TYPE: CT brain wo con CT DLP: 1134.8 mGycm, Automated exposure control for dose reduction was used. DATE OF EXAM: 02/17/2024 10:23 AM COMPARISON: CT brain 11/20/2023, MRI brain 11/29/2023. CLINICAL INDICATION:Female, 73 years old with history of headache, POD#7 s/p transphenoidal surgery, recent removal of brain tumor/ headache TECHNIQUE: Brain: Multiple axial CT images of the brain were obtained without IV contrast. . Coronal and sagitta l reformats reviewed. FINDINGS: Brain: Extra-axial spaces: No abnormal extra-axial fluid collections. Ventricular system: Within normal limits Cerebral parenchyma: No acute intraparenchymal hemorrhage or mass effect. The parnell-white junction is well differentiated. Scattered hypoattenuating areas are seen within the periventricular white matte r. Cerebellum: Unremarkable. Mass effect: No evidence of midline shift. Intracranial vasculature: Atherosclerotic calcifications of the intracranial vessels. Soft tissues: Normal. Calvarium/osseous structures: No depressed skull fracture. Paranasal sinuses and mastoid air cells: Moderate mucosal thickening of the ethmoid sinuses. Moderate -to-severe opacification of the sphenoid sinus with postsurgical changes to the nasopharynx identifie d. There is a heterogenous 3.2 x 2.1 cm region within the pituitary fossa at site of previously demon strated pituitary lesion. Visualized orbits: Orbital contents are intact. IMPRESSION: 1. Postsurgical changes in the pituitary fossa from recent transsphenoidal surgery with heterogenous fluid identified within the surgical bed. Evaluation is limited due to lack of intravenous contrast and recent postsurgical change. If there is continued clinical concern, consider further evaluation w ith MRI. 2. No CT evidence for acute intracranial hemorrhage or CVA. 3. Nonspecific white matter changes likely related to small vessel ischemic disease.
[2024-02-17 11:05] VITALS: BP 121/68; PULSE 59; RESP 16; TEMP 97.9
== END 2024-02-17 11:12 | disposition home or self-care (01) ==
LOC: EC 09:30
DX: R51.9 Headache, unspecified (principal)
CPT/HCPCS: 36415; 70450; 80048; 85025; 99284

== ENCOUNTER 2024-03-04 21:50 | Emergency (ER) | payer MEDICARE ==
[2024-03-04] MEDS ORDERED: SODIUM CHLORIDE 0.9% 1,000 ML BAG ONE (22:10)
[2024-03-04] MEDS ORDERED: cefTRIAXone 2 GM VIAL ONE (23:05)
[2024-03-05] MEDS ORDERED: ONDANSETRON 4 MG/2 ML VIAL ONE (02:22)
--- NOTE | 2024-04-14 11:52 | XR ---
Patient Morena Centeno ID [id number] Order # EXAMINATION TYPE: XR chest 1V DATE OF EXAM: 03/15/2024 COMPARISON: No comparison available on downtime PACS. INDICATION: Short of breath TECHNIQUE: Single frontal view of the chest is obtained. FINDINGS: The heart size is normal. The pulmonary vasculature is normal. The lungs are clear. Port is present on the right with the tip in the superior vena cava region. Electronic pack overlies the right chest. IMPRESSION: 1. No acute pulmonary process.
== END 2024-03-05 06:30 | disposition home or self-care (01) ==
LOC: EC 21:50
DX: K52.9 Noninfective gastroenteritis and colitis, unspecified (principal)
CPT/HCPCS: 71045; 80053; 82150; 83605; 83690; 84484; 85025; 87040; 96361; 96365; 96375; 99285